=== PATIENT | female | born 1945 | race Caucasian/White ===

== ENCOUNTER 2018-02-06 21:34 | Emergency (ER) | payer MEDICARE, BC ==
[2018-02-06] MEDS: Iopamidol 755 Mg/ML 100 ML Bottle IV ONE (22:49)
[2018-02-06] MEDS: Diatrizoate Meglumine/Diatrizoate Sodium 37% 30 ML Bottle PO ONE (22:49)
[2018-02-06] MEDS ORDERED: Amoxicillin/Clavulanate K 875-125 MG Tab PO ONE (23:55)
--- NOTE | 2018-02-07 01:16 | ER ---
DATE SEEN: 02/06/2018 CHIEF COMPLAINT: Abdominal pain. HISTORY OF PRESENT ILLNESS: This is a 72-year-old female with left lower quadrant abdominal pain over the last 4 days, worse today. No constipation or diarrhea. ALLERGIES: Levaquin. REVIEW OF SYSTEMS: No fever. PHYSICAL EXAMINATION: GENERAL: Nontoxic. VITAL SIGNS: Afebrile. Normotensive. ABDOMEN: Soft and benign. There is tenderness in the left lower quadrant. No masses. LABORATORIES: Normal labs. UA is negative. RADIOGRAPHIC DATA: CT showed diverticulitis. IMPRESSION: Acute diverticulitis. TREATMENT: Augmentin 875 mg b.i.d. I reviewed the lab results with her, and the patient will be followed up on Sunday. I advised to be n.p.o. until Sunday but drink clear fluids from now on. /[id number] ANITA/KEVIN
[2018-02-07 01:23] VITALS: BP 131/80
== END 2018-02-07 00:08 | disposition home or self-care (01) ==
LOC: FB.ED 21:34
DX: K57.92 Diverticulitis of intestine, part unspecified, without perforation or abscess without bleeding (principal)
CPT/HCPCS: 36415; 74177; 80053; 81001; 82150; 83605; 85025; 99284; A9270; Q9963; Q9967